=== PATIENT | male | born 2000 | race Caucasian/White ===

== ENCOUNTER 2019-04-05 05:35 | Emergency (ER) | payer SELFPAY ==
[~2019-04-05] VITALS: Ht 175.3 cm; Wt 106.1 kg
[2019-04-05 05:40] VITALS: Ht 175.3 cm; Wt 106.1 kg
[2019-04-05 07:11] VITALS: BP 138/96
== END 2019-04-05 07:11 | disposition home or self-care (01) ==
LOC: ED 05:35
DX: K29.70 Gastritis, unspecified, without bleeding (principal)